=== PATIENT | male | born 2000 | race Caucasian/White ===

== ENCOUNTER 2023-12-21 18:18 | Emergency (ER) | payer OTHER ==
[~2023-12-21] VITALS: Ht 185.4 cm; Wt 81.7 kg
[2023-12-21] MEDS ORDERED: SUBOXONE 8 MG-1 EACH (19:11)
== END 2023-12-21 18:59 | disposition home or self-care (01) ==
LOC: ER 18:18
DX: F15.159 Other stimulant abuse with stimulant-induced psychotic disorder, unspecified (principal); F11.10 Opioid abuse, uncomplicated
CPT/HCPCS: 99284

== ENCOUNTER 2023-12-23 08:10 | Observation (INO) | payer OTHER, MEDICAID ==
[~2023-12-23] VITALS: Ht 177.8 cm; Wt 86.2 kg
[~2023-12-23 08:10] MED LIST: SUBOXONE 8 MG-1 EACH
[2023-12-23] MEDS ORDERED: LORazepam 2 MG/ML 1ML Injection ONE (08:14)
[2023-12-23] MEDS ORDERED: Haloperidol Lactate Inj. 5 MG/ML Injection ONE (08:14)
[2023-12-23] MEDS ORDERED: Haloperidol Lactate Inj. 5 MG/ML Injection IM ONE (08:25)
[2023-12-23] MEDS ORDERED: LORazepam 2 MG/ML 1ML Injection IM ONE (08:25)
[2023-12-23] MEDS ORDERED: Ketamine HCL 10 MG/ML 20MLVIAL IM ONE (08:35)
[2023-12-23] MEDS ORDERED: Ketamine HCl 100 MG / ML 5ML Vial IM ONE (08:40)
[2023-12-23 09:06] LABS: BASOPHILS ABSOLUTE AUTO 0.03 K/mm3 (0.00-0.23); BASOPHILS PERCENT AUTO 0 % (0-2); EOSINOPHILS ABSOLUTE AUTO 0.02 K/mm3 (0.00-0.68); EOSINOPHILS PERCENT AUTO 0 % (0-6); Hematocrit 41.7 % (37.0-53.0); Hemoglobin 14.4 g/dL (13.5-17.5); IMMATURE GRAN ABSOLUTE AUTO 0.04 K/mm3 (0.00-0.10); IMMATURE GRAN PERCENT AUTO 1 % (0-1); LYMPHOCYTES ABSOLUTE AUTO 0.75 K/mm3 (0.84-5.20); LYMPHOCYTES PERCENT AUTO 11 % (21-46); MONOCYTES ABSOLUTE AUTO 0.47 K/mm3 (0.16-1.47); MONOCYTES PERCENT AUTO 7 % (4-13); Mean Corpuscular HGB 29.4 pg (26.0-34.0); Mean Corpuscular HGB Conc 34.5 g/dL (31.5-36.5); Mean Corpuscular Volume 85 fL (80-100); Mean Platelet Volume 10.4 fL (9.1-12.4); NEUTROPHILS PERCENT AUTO 81 % (41-73); Platelet Count 252 K/mm3 (150-400); RDW Coefficient Variation 12.8 % (11.7-14.2); RDW Standard Deviation 39.5 fL (35.1-46.3); Red Blood Cell Count 4.89 M/mm3 (4.30-5.90); White Blood Cell Count 7.01 K/mm3 (4.00-11.30)
[2023-12-23 09:33] LABS: Ethanol (Alcohol), Blood, Med <3 mg/dL; Salicylate 2.1 mg/dL (2.8-20.0)
[2023-12-23 09:35] LABS: Alanine Aminotransfer (ALT/SGP 54 U/L (12-78); Albumin, Blood 4.2 g/dL (3.4-5.0); Albumin/Globulin Ratio 1.2 (0.8-1.8); Alk Phos 63 U/L (50-136); Anion Gap 11 mmol/L (3-11); Aspartate Aminotrans (AST/SGOT 60 U/L (12-37); Bilirubin, Total 0.6 mg/dL (0.1-1.0); Blood Urea Nitrogen 7 mg/dL (8-24); Bun/Creatinine Ratio 7.2 (12.0-20.0); CO2, Blood 25 mmol/L (21-32); Calcium, Blood 9.6 mg/dL (8.5-10.1); Chloride, Blood 107 mmol/L (98-108); Creatinine, Blood 0.97 mg/dL (0.60-1.20); Globulin, Blood 3.6 g/dL (2.2-4.0); Glomerular Filtration Rate 112 (60-); Glucose, Blood 117 mg/dL (70-99); Potassium, Blood 3.6 mmol/L (3.5-5.5); Sodium, Blood 139 mmol/L (136-145); Total Protein, Blood 7.8 g/dL (6.4-8.2)
[2023-12-23 09:39] LABS: Acetaminophen, Random <2.0 ug/mL (10.0-30.0)
[2023-12-23 18:19] LABS: U Amphetamine Screen Not Detected; U Barbituate Screen Not Detected; U Benzodiazapine Screen DETECTED; U Buprenorphine Screen Not Detected; U Cannabinoids Screen DETECTED; U Cocaine Screen Not Detected; U Methadone Screen Not Detected; U Methamphetamine Screen Not Detected; U Opiates Screen Not Detected; U Oxycodone Screen Not Detected; U Phencyclidine Screen Not Detected
[2023-12-24] MEDS ORDERED: LORazepam 2 MG/ML 1ML Injection IM ONE (06:00)
[2023-12-24] MEDS ORDERED: Haloperidol Lactate Inj. 5 MG/ML Injection IM ONE (06:00)
[2023-12-24] MEDS ORDERED: EFFEXOR (16:48)
== END 2023-12-24 16:15 | disposition other institution (70) ==
LOC: ER 08:10 → EOR 08:11 → EDBEDREQ 12-24 08:20 → EDBEDREQSVC 12-24 08:20 → EDBEDREQ 12-24 11:57 → EDBEDREQTM 12-24 13:39 → EOR 12-24 16:15
PROVIDERS: ADMIT Student in an Organized Health Care Education/Training Program
DX: F31.2 Bipolar disorder, current episode manic severe with psychotic features (principal); R45.851 Suicidal ideations
CPT/HCPCS: 80053; 80320; 85025; 93005; 93010; 96372; 99285-25; G0378; G0480; J1630; J2060

== ENCOUNTER 2023-12-24 11:53 | Inpatient (IN) | payer MEDICAID ==
[~2023-12-24] VITALS: Ht 185.4 cm; Wt 187.0 kg
[2023-12-24 14:50] VITALS: BP 133/67
[2023-12-24] MEDS ORDERED: EFFEXOR (16:48)
[2023-12-24] MEDS ORDERED: DiphenhydrAMINE HCl 50 MG Cap PO PRN ×2 (17:00→17:05)
[2023-12-24] MEDS ORDERED: Haloperidol 5 MG Tab PO PRN ×2 (17:05)
[2023-12-24] MEDS ORDERED: LORazepam 2 MG Tab PO PRN ×2 (17:05)
[2023-12-24] MEDS ORDERED: OLANZapine 10 MG Vial IM PRN (17:05)
--- NOTE | 2023-12-24 18:51 | NUR ---
PT WAS ADMITTED TO [facility] AT 1630, HE DENIED SI, HI, VH, HE REPORTED THAT THERE IS SOMETHING BEING SAID IN MY MIND THAT HAS NOTHING TO DO WITH WHAT WE ARE TALKING ABOUT. AT SOME POINTS HE SEEMED TO BE RESPONDING TO INTERNAL STIMULI. HE WAS SLOW TO ANSWER QUESTIONS BUT WAS FACTUAL ABOUT DEMOGRAPHIC. HE ATE DINNER AND IS NOW RELAXING AND READING WHILE LAYING ON HIS BED. HE EXPRESSED THAT HE WANTS HELP TO FIGURE OUT WHATS GOING ON WITH HIM. HE BECAME TEARFUL WHEN THIS LONG TERM CARE PHLEBOTOMIST EXPLAINED IF HE NEEDS ANYTHING THAT WE ARE ALL HERE TO HELP.
[2023-12-24] MEDS ORDERED: OLANZapine 10 MG Tab PO SCH (21:00)
--- NOTE | 2023-12-24 23:33 | NUR ---
Pt calm, cooperative, medication compliant, Pt resting in room reading a book. Medications well tolerated. Pt denies SI, HI, A/V Hallucinations at this time. NO issues at this time.
--- NOTE | 2023-12-24 23:40 | NUR ---
Pt calm, cooperative, medication compliant, pt resting in bed x3 rise and fall of chest observed by RN. Pt denies SI, HI, A/V Hallucination pt seems internally stimulated althought not verbalized. NO issues at this time.
--- NOTE | 2023-12-24 23:59 | NUR ---
Pt calm, cooperative, Pt denies SI, HI, A/V Hallucinations. RN observed possible internal stimulation, Pt asleep, no issues at this time. RN observed pt resting in bed, 3x rise and fall of chest observed. No issues at this time.
--- NOTE | 2023-12-25 00:25 | NUR ---
Pt calm, cooperative, medication compliant, medication well tolerated, Pt denies SI, HI, A/V Hallucinations, pt may be internally stimulated. Pt seen on unit, withdrawn to room, no issues at this time.
--- NOTE | 2023-12-25 06:34 | NUR ---
Pt calm, cooperative, medication compliant, resting in bed, 3x rise and fall of chest. No issues at this time.
--- NOTE | 2023-12-25 07:15 | NUR ---
Shift Summery Pt calm, cooperative, Pt slept aproximately 9 hours. Pt read in bed, self soothed and settled down for sleep. Pt medication compliant, meds well tolerated. Pt rested with 3x rise and fall of chest observed. Pt seemed to be internally stimulated, slow to respond to questions from RN. Pt withdrawn to room this shift. No issues at this time.
[2023-12-25 09:38] VITALS: BP 127/85
--- NOTE | 2023-12-25 11:51 | NUR ---
FRANCA attempted to contacted Kam (i.e. mother) of pt in order to provide support for pt during treatment at 11:51am). FRANCA left a vm for Kam to callback.
[2023-12-25] MEDS ORDERED: Nicotine Polacrilex 2 MG Gum PO PRN (17:35)
--- NOTE | 2023-12-25 18:04 | NUR ---
PT ALERT AND ORIENTATED TO PERSON PLACE AND SITUATION. HE IS CALM AND COOPERATIVE TODAY. HE IS QUIET, EYE CONTACT IS MINIMAL. HE DID PARTICIPATE WITH GROUP. DECLINED SHOWER. HE DENIES SI/HI/AH/VH. BUT DOES APPEAR TO BE RESPONDING TO INTERNAL STIMULI. MOTHER IN TO VISIT TODAY. HE SLEPT ON AND OFF THROUGHOUT DAY. HE DENIES ANY CURRENT NEEDS.
--- NOTE | 2023-12-26 01:42 | NUR ---
patient sleeping. Alert and cooperative with HS medications. Flat affect. Will continue close monitoring.
--- NOTE | 2023-12-26 05:20 | NUR ---
Patient A&OX4 and cooperative with care. Very sad, flat affect. Has slept 8 hours so far. Denies SI,HI,A/VH or internal stimuli at the time of assessment. will continue close observation
[2023-12-26 05:39] VITALS: BP 149/82
--- NOTE | 2023-12-26 08:17 | NUR ---
At approximately 1600 FRANCA met with pt and his mother Kam in order to provide psycho-education of BI and evidence based therapy modalities (i.e. DBT). FRANCA provided pt and Kam with psychiatrist and therapists within pt insurance network (i.e. [facility]). Pt used healthy communication to express to caregiver that he prefers to continue tx after discharge in [place] in place of [place]. Pt expressed he is interested in therapy and psychiatric services. FRANCA also provided pt with detox and LILLIAM tx in the event pt felt he would need it in the future. This meeting took place 12/25/2023.
[2023-12-26 08:20] VITALS: BP 156/90
--- NOTE | 2023-12-26 08:22 | NUR ---
On 12/25/2023 from [id number] to [id number] FRANCA attempted to contact different providers of [place] in order to support pt in finding services for LILLIAM, therapy, and psychiatric services (i.e. [facility] and [facility]). FRANCA will meet with pt and caregiver later in the day to review multitude of resources found.
--- NOTE | 2023-12-26 17:12 | NUR ---
SHIFT SUMMARY PT AxOx4. PLEASANT AND COOPERATIVE WITH CARE. PT HAS BEEN PARTICIPATING IN GROUPS THIS SHIFT, INTERACTING WITH PEERS, AND WATCHING TV. HE HAS ALSO BEEN IN HIS ROOM READING A BOOK ON HIS BED ON AND OFF. HE HAD VISIT WITH MOTHER TODAY. HE BECAME TEARFUL AFTER HIS VISIT. STATED HE "HAS TO TAKE THIS STUFF SERIOUSLY AND TAKE CARE OF MY MENTAL HEALTH." PT DENIED SI/HI THIS SHIFT BUT ENDORSED HEARING NON THREATENING VOICES T/O THE DAY. PT DESCRIBES THE VOICES A REPLAY OF THE EVENTS THAT LED HIM TO INPATIENT ADMISSION. PT REPORTS HE "FEELS BAD FOR MY FAMILY FOR HAVING TO DEAL WITH MY PROBLEMS." PT DISCUSSED DC PLANS WITH THIS RN TODAY, STATING PREFERENCE TO GOING INTO D&A TREATMENT AFTER HE LEAVES THE U. REASSURES PT THAT WE WILL LOOK INTO OPTIONS ON HIS BEHALF. SINGLE NEEDLE TUFTING MACHINE OPERATOR NOTIFIED. PT IS CURRENTLY SITTING IN [place] EATING DINNER. DENIES ANY NEEDS AT THIS TIME.
--- NOTE | 2023-12-26 19:27 | NUR ---
Patient complaining about mild stomach pain. Currently drinking black coffee. This RN suggested trying some 7UP and soda crackers to sooth stomach, but patient not interested at this time. Described loose stool earlier this afternoon that has resolved. will continue monitoring.
[2023-12-26 20:09] VITALS: BP 120/81
[2023-12-26] MEDS ORDERED: Buprenorphine HCL/Naloxone HCL 8MG-2MG Tab SL SCH (21:00)
--- NOTE | 2023-12-27 01:15 | NUR ---
Patient read for approximately 60 minutes before falling to sleep. A&OX4, quiet, eye contact improving, cooperative and compliant with medications. will be continiuing to monitor overnight
--- NOTE | 2023-12-27 04:09 | NUR ---
Patient a&ox4, cooperative with care. Went to bed early and so far has slept through the night. States no SI,HI or A/V hallucinations. Sleep to this point, around 7 hours.
[2023-12-27 08:32] VITALS: BP 149/69
--- NOTE | 2023-12-27 08:36 | NUR ---
RN NOTE Morning assessment pt calm, cooperative, denies SI, HI at this time. Pt states, "I can't, if I am hearing or seeing things that you can not hear or see." Patient medication compliant requested Nicotine Gum. Medications administered as ordred. Medications well tolerated. Pt has flat affect, seems sad and withdrawn. Pt seen on unit social in kitchen with peers for breakfast. Pt has glancing indirect short eye contact. No issues at this time.
--- NOTE | 2023-12-27 08:53 | NUR ---
Pt calm, cooperative, walking in halls, social eating breakfast with peers. NO issues at this time.
--- NOTE | 2023-12-27 09:17 | NUR ---
PT DENIES SI, HI, A/V HALLUCINATIONS AT THIS TIME. NO ISSUES AT THIS TIME. PT SEEN ON UNIT SOCIAL PLAYING GAMES WITH PEERS ATTENDING GROUPS. WALKING HALLS AND INTERACTING POSITIVELY WITH STAFF AND PEERS. ASSESSED PATIENT.
--- NOTE | 2023-12-27 09:25 | NUR ---
PT APPEARS WELL GROOMED, TOOK SHOWER, INDEPENDANT WITH ADL'S. no ISSUES AT THIS TIME.
--- NOTE | 2023-12-27 11:33 | NUR ---
PT CALM, COOPERATIVE, MEDICATION COMPLIANT, MEDICATION WELL TOLERATED. PT DENIES SI, HI, A/V HALLUCINATION AT THIS TIME.
[2023-12-27 20:31] VITALS: BP 131/89
[2023-12-27] MEDS ORDERED: OLANZapine 10 MG Tab PO SCH (21:00)
[2023-12-27] MEDS ORDERED: Buprenorphine HCL/Naloxone HCL 8MG-2MG Tab SL SCH (21:00)
--- NOTE | 2023-12-27 22:44 | NUR ---
Patient concerned about taking 20mg Zyprexa at HS after taking 10mg this morning. This RN agreed to give him 10mg at bedtime, and make this note so that MD would be aware. Patient agreed to inform if he was unable to sleep or became uncomfortable or anxious
--- NOTE | 2023-12-28 04:40 | NUR ---
Patient has slept since approx. 2300 last night. Quiet, sad affect prior to going to bed. States no SI,HI or A/VH. Six sleep hours to this point in the morning. will continue to monitor
[2023-12-28 08:02] VITALS: BP 129/82
--- NOTE | 2023-12-28 08:18 | NUR ---
Pt awake, reading, making lists of calls to make being proactive with finding the next phase of his recovery. Pt calm, cooperative, demonstrating perserverance, tenacity, forward thinking. Pt making list of treatment facilities and sobriety support, housing, solutions to continue on the positive road to rehabilitation and mental health management. Pt medication compliant, medication well tolerated. No issues at this time.
[2023-12-28 20:15] VITALS: BP 121/86
--- NOTE | 2023-12-29 00:11 | NUR ---
Patient sleeping without any issues.
--- NOTE | 2023-12-29 03:50 | NUR ---
Patient continues to sleep well without noted issues.
--- NOTE | 2023-12-29 07:52 | NUR ---
PT UP EARLY, SHOWERED AND ATTENDED TO ADLS INDEPENDENTLY. PT REPORTS MOOD IS "GABBY," PT DENIES ANY SI\\HI, PT IS UNSURE IF HE IS HAVING HALLUCINATIONS, THEN TALKS ABOUT FEELING A LITTLE "SQUIRLY," HE DOES STATE MEDICATIONS ARE HELPFUL SINCE HE HAS BEEN HERE. HE IS REALLY INTERESTED IN IN PATIENT TREATMENT PROGRAAM, WE DID FILL OUT SOME OF THE PAPERWORK THAT WAS FAXED YESTERDAY, I HAVE CALLED THE FACILITY AND LEFT MESSAGE FOR CLARIFICATION ON KURTIS/PROCESS. PT STATES HE IS UNSURE ABOUT DISCHARGE WITHOUT A DEFINITIVE PLAN FOR SUBSTANCE ABUSE TREATMENT PROGRAM.
[2023-12-29 08:02] VITALS: BP 143/75
--- NOTE | 2023-12-29 10:01 | NUR ---
PT PARTICIPATED IN MORNING CRAFT GROUP, HE CREATED A KEVIN CHARACTER, HE SMILES AND STATES HE IS GOING TO GIVE IT TO MARCELA, HIS MOTHER. SPOKE TO PT ABOUT HIS SON, HE GETS TEARS IN HIS EYES WHEN TALKING ABOUT HIM AND AVERTS HIS EYES, OTHERWISE HE IS SMILING AND CONVERSIVE. PT NOW WATCHING MOVIE IN MEDIA ROOM WITH STAFF AND OTHER PATIENTS.
[2023-12-29] MEDS ORDERED: Bacitracin Zinc Oint 1GRAM UD Packet TOP SCH (14:00)
[2023-12-29] MEDS ORDERED: Bacitracin Ointment 30 GM TOP SCH (14:00)
--- NOTE | 2023-12-29 17:28 | NUR ---
PT HAS BEEN ENGAGED WITH STAFF AND PATIENTS ALL DAY, INCREASED EXPRESSIVENESS AND DESIRE FOR SOBRIETY. INTAKE FORM FAXED TO FACILITY, CALL AND MESSAGE PLACED, AWAITING CALL BACK. PT MOTHER ARRIVED FOR VISIT, PT ENGAGED AND CORDIAL. SHE BRINGS A COUPLE PAPERBACK BOOKS FOR PT TO READ. PT EXPRESSES HE IS INTERESTED IN THE SPECIFIC FACILITY IT IS LOCATED AWAY FROM PREVIOUS CONTACTS, BUT HE WOULD ALSO BE WILLING TO GO TO ANOTHER TREATMENT FACILITY IF NEEDED. PT EXPRESSES THE NEED TO COME UP WITH A SAFETY PLAN A "BACK UP," MOTHER ALSO AGREES. PT REPORTS HE HAS ADDITIONAL FAMILY MEMBERS THAT CAN BE SUPPORTIVE AND SAFE IF IT TAKES LONGER TO GET ACCEPTED INTO A PROGRAM.
[2023-12-29 19:37] VITALS: BP 127/70
--- NOTE | 2023-12-29 20:46 | NUR ---
PT IN BRIGHT AND CHEERFUL MOOD. GIVEN MEDS AND HE WENT INTO WATCH TV. DENIES TO HAVE SI, AH,EID,AND VH. STATED HE FEELS LIKE HE IS DOING GOOD FOR NOW.
--- NOTE | 2023-12-30 01:50 | NUR ---
PT LAYING ON BED RESTING WITH EYES CLOSED AND EVEN RESPIRATIONS. WILL CONTINUE TO MONITOR.
[2023-12-30 08:42] VITALS: BP 129/78
--- NOTE | 2023-12-30 09:03 | NUR ---
SENT AN UPDATED FACE SHEET TO [facility] WITH UPDATED INSURANCCE INFORMATION. PT ALSO GIVEN LIST OF LILLIAM TREATMENT PROGRAMS IN THIS [facility] ALONG WITH THE [facility] PROGRAMS PER HIS REQUEST.
--- NOTE | 2023-12-30 16:29 | NUR ---
PT HAD VISIT WITH HIS MOM. PT RED EYES AND HOLDING BACK TEARS. PT STATES, "IM LOOKING FORWARD TO TOMORROW AND MOVING FORWARD WITH MY TREATMENT AT THE INPATIENT FACILITY SOON THERE IS A BED AVAILABLE." PT DENIES SI, HI, STILL CAN NOT TELL IF HE IS HEARING VOICES. PT SAYS HE HEARS VOICES BUT CANT TELL WHAT THEY ARE SAYING, THEY ARE VOICES OF FAMILY MEMBERS.
[2023-12-30] MEDS ORDERED: OLANZapine 5 MG Tab PO SCH (21:00)
[2023-12-31 07:48] VITALS: BP 112/67
--- NOTE | 2023-12-31 08:56 | NUR ---
PT DENIED SI, HI, AVH AND PHSICAL PAIN. HE REPORTS ANXIETY 5/10w. HE REPORTED THAT HE IS "EXCITED FOR WHAT'S NEXT IN MY LIFE, I'M READY TO GO INTO TREATMENT AND THEN MAYBE I CAN HELP OTHER YOUNG PEOPLE WHO HAVE THE SAME PROBLEMS." PT ATE 100% OF HIS BREAKFAST AND IS CURRENTLY LAYING ON HIS BED READING.
[2023-12-31] MEDS ORDERED: OLANZAPINE15 M1 PO (12:00)
--- NOTE | 2023-12-31 14:07 | NUR ---
DISCHARGE SUMMARY PT AxOx4. PLEASANT AND COOPERATIVE WITH CARE. PT DISCHARGING HOME TODAY WITH MOTHER, MARCELA KIDD. PT IS IN A "GOOD" MOOD TODAY REPORTING HE WAS EXCITED ABOUT DISCHARGE AND STARTING HIS NEW LIFE. MAIL READER SENT REFERRAL FOR D&A INPATIENT TREATMENT PROGRAM IN [place], WHERE THE PATIENT RESIDES, BUT APPLICATION WAS STILL PENDING AT TIME OF PT'S RELEASE. SW TO UPDATE PT AND HIS MOTHER ON STATUS LATER TODAY. DISCHARGE INFO DISCUSSED WITH PATIENT INCLUDING EMPHASIS ON NEED TO ESTABLISH NEW PCP AND PSYCHIATRIC PROVIDER ONCE HE GETS BACK TO [place]. PT EDUCATION PROVIDED ON DIAGNOSIS AND MEDICATIONS. RX MEDS FAXED TO [facility] IN [place] ALONG WITH A HARD COPY PROVIDED FOR HIS CONTROLLED MED. PT VERBALIZED UNDERSTANDING AND DECLINED FURTHER QUESTIONS. PT'S SAFELY ESCORTED OUT OF UNIT WITH [facility]HA. HIS MOTHER WAS WAITING IN VEHICLE
--- NOTE | 2023-12-31 14:18 | NUR ---
Aprroximately from 1230pm to 1330pm SW contacted facilities provided by pt insurance (i.e. [facility]) in order to locate pt a psychiatrist and pcp. The following locations that FRANCA contacted include [facility] [phone], [facility] [phone], [facility] [phone], [facility] [phone], [facility] [phone], [facility] [phone] and [facility] [phone]. Pt was not able to get into none of the facilities contacted by FRANCA due to needing to have cahto heritage (i.e. pt advised he does not have any ) or facilities did not have immediate availability that would be within 7 days of [facility] discharge. SW reviewed barriers with pt. Pt advised he will attempt to seek a pcp and psychiatrist on his own.
== END 2023-12-31 14:00 | disposition home or self-care (01) | DRG 885 ==
LOC: BHU 11:53
PROVIDERS: ADMIT Student in an Organized Health Care Education/Training Program
DX: F31.2 Bipolar disorder, current episode manic severe with psychotic features (principal); Z56.0 Unemployment, unspecified; Z79.899 Other long term (current) drug therapy; F15.90 Other stimulant use, unspecified, uncomplicated
CPT/HCPCS: A9270